=== PATIENT | male | born 1965 | race Caucasian/White ===

== ENCOUNTER 2021-09-29 18:24 | Observation (INO) ==
--- NOTE | 2021-09-29 18:44 | Emergency Department Note ---
Abdominal Pain HPI General Chief Complaint: Abdominal Pain Stated Complaint: Flank pain Time Seen by Provider: 09/29/21 18:26 Source: patient Mode of arrival: ambulatory Limitations: no limitations History of Present Illness HPI Narrative: 56-year-old male presents to the ER from minor care after a CT scan revealed a mild appendicitis. The patient states that he had onset of symptoms 3 days ago and cut his camping trip short due to right lower quadrant discomfort. He's had no nausea or vomiting. Denies fevers or chills. No previous abdominal surgeries. He is passing flatus and having normal stools. Last meal was at 11:30 AM. Past medical history significant for hypertension for which he takes 10 mg of lisinopril daily otherwise no other significant medical issues. CBC and CMP from 09/28 are within normal limits. CT scan from today shows: The appendix is slightly enlarged. Proximal appendix measures approximately 9 mm in cross-sectional diameter. There is mild periappendiceal inflammatory change. Findings are consistent with mild or early appendicitis. There is no abscess. No appendicolith. No evidence for ruptured appendicitis. Related Data Home Medications Medication Instructions Recorded Confirmed lisinopril 10 mg tablet 10 mg PO DAILY 07/23/15 09/29/21 cholecalciferol (vitamin D3) 125 125 mcg PO QDAY 03/29/21 09/29/21 mcg (5,000 unit) capsule omega 9-njk-cho-fish oil 1,000 mg 1 cap PO BID 03/29/21 09/29/21 (120 mg-180 mg) capsule (Fish Oil) Allergies Allergy/AdvReac Type Severity Reaction Status Date / Time oxycodone [From Percocet] AdvReac Mild Itching Verified 09/28/21 18:02 Review of Systems ROS ROS Narrative: Narrative: All systems ED: reviewed and negative except as stated. PFSH Narrative Patient History Narrative: Narrative: Medical/Surgical/Family History All Active Problems (Updated 09/29/21 @ 18:50 by Bárbara Lima PA-C) Acute appendicitis (Acute) Right sided abdominal pain (Acute) Cervical radiculopathy (Acute) Occipital neuralgia (Chronic) Other low back pain (Chronic) Chronic pain (Chronic) GERD (gastroesophageal reflux disease) (Chronic) Gout (Chronic) Benign essential hypertension (Chronic) Anxiety (Chronic) Sleep apnea (Chronic) Hyperlipidemia (Chronic) Vitamin D deficiency (Chronic) Lateral epicondylitis (Chronic) Atrial fibrillation (Chronic) Breast mass (Chronic) Foot pain (Chronic) Unilateral sensorineural hearing loss (Chronic) Tobacco use (Chronic) Knee pain (Chronic) Actinic keratosis (Chronic) Elevated PSA (Chronic) Bilateral elbow joint pain (Chronic) Vertigo (Chronic) Cervical spine degeneration (Chronic) Headache (Chronic) Neck pain (Chronic) Chest pain (Chronic) Medical History Actinic keratosis Anxiety Atrial fibrillation Benign essential hypertension Bilateral elbow joint pain Breast mass Cervical spine degeneration Chest pain Chronic pain Elevated PSA Foot pain GERD (gastroesophageal reflux disease) Gout Headache Hyperlipidemia Knee pain Lateral epicondylitis Neck pain Occipital neuralgia Other low back pain Sleep apnea Tobacco use Unilateral sensorineural hearing loss Vertigo Vitamin D deficiency Surgical History History of Achilles tendon repair x2 Family History Mother Cancer Chronic pain Heart disease Diabetes Hypertension Sister Hypertension Family/Other Cancer Heart disease Diabetes Social History Smoking Status: Former smoker Alcohol Intake Frequency: a few times a week Substance Use: does not use Exam Narrative Narrative: General: AOx3, NAD, nontoxic appearing. Pleasant and conversant. HEENT: PERRL, EOMI, normocephalic. Moist mucous membranes. Normal facies and normal dentition. Chest: Symmetric, no pain to palpation Respiratory: Lungs clear to auscultation bilaterally. No respiratory distress. Unlabored breathing. Heart: Regular rate and rhythm, no murmurs/clicks/rubs. Abdomen: Mild right lower quadrant discomfort, negative McBurney's rebound tenderness., Non distended. No organomegaly. Extremities: Warm and well perfused. No edema. DP 2+ bilaterally. No venous stasis. Neuro: No focal deficits. Cranial nerves II-XII grossly normal. Skin: Warm dry, no rashes or lesions, no cyanosis. Psych: Normal mood and affect Heme/Lymph: No abnormal bruising General Limitations: no limitations Course Vital Signs Vital signs: Vital Signs Temperature 97.3 F 09/29/21 18:26 Pulse Rate 64 09/29/21 18:26 Respiratory Rate 16 09/29/21 18:26 Blood Pressure 155/88 09/29/21 18:26 Pulse Oximetry (%) 97 09/29/21 18:26 Oxygen Delivery Method 09/29/21 18:26 Temperature 97.3 F 09/29/21 18:26 Pulse Rate 64 09/29/21 18:26 Respiratory Rate 16 09/29/21 18:26 Blood Pressure 155/88 09/29/21 18:26 Pulse Oximetry (%) 97 09/29/21 18:26 Oxygen Delivery Method 09/29/21 18:26 MDM MDM Narrative Medical decision making narrative: Appendicitis Dr. Jernigan has been consulted on this patient and the plan is to admit, start IV antibiotic, and he will take him to the OR tomorrow for appendectomy. Lab Data Result diagrams: 09/29/21 18:41 Labs: Lab Results 09/29/21 Range/Units 18:46 POC Hct 44.0 (41-55) POC Sodium 136 (133-145) POC Potassium 4.3 (3.3-5.1) POC Chloride 100 (96-108) POC Total CO2 26.0 (22-30) POC BUN 16 (6-20) POC Creatinine 1.1 (0.6-1.2) POC Glucose 100 (70-105) POC WB Ioniz Calcium 1.06 L (1.16-1.32) Discharge Plan Patient/Caregiver Discharge Instructions Pt seen by BLUEPRINT ENGINEER/PA only: Yes Clinical Impression: Acute appendicitis Patient Disposition: Xfer As Inpt ([facility]) Follow up with: Rob Ness ARNP [Primary Care Provider] - Prescriptions: No Action cholecalciferol (vitamin D3) 125 mcg (5,000 unit) capsule 125 mcg PO QDAY omega 5-icz-kfk-fish oil [Fish Oil] 1,000 mg (120 mg-180 mg) capsule 1 cap PO BID lisinopril 10 MG tablet 10 mg PO DAILY
[2021-09-29] MEDS ORDERED: PIPERACILLIN SODIUM/TAZOBACTAM 3.375 GM in DEXTROSE 5% IN WATER 50 ML IV ONE (18:46)
[2021-09-29 18:51] LABS: POC Calcium, Ionized 1.06 (1.16-1.32); POC Creatinine 1.1 (0.6-1.2); POC Potassium 4.3 (3.3-5.1)
[2021-09-29] MEDS ORDERED: ONDANSETRON 4 MG/2 ML VIAL IV ONE (18:56)
[2021-09-29 19:09] LABS: Basophils # (Auto) 0.05 K/mcL (0.00-0.30); Basophils % (Auto) 0.7 % (0.0-2.0); Eosinophils # (Auto) 0.29 K/mcL (0.00-0.70); Eosinophils % (Auto) 4.1 % (0.0-7.0); Hematocrit 40.7 % (40.1-51.0); Hemoglobin 14.2 g/dL (13.7-17.5); Lymphocytes # (Auto) 2.46 K/mcL (1.50-4.80); Lymphocytes % (Auto) 34.6 % (15.5-49.0); Mean Cell Volume 91.7 fL (80.0-100.0); Mean Corpuscular HGB Conc 34.9 g/dL (31.0-36.0); Mean Platelet Volume 9.3 fL (7.4-10.4); Monocytes # (Auto) 0.85 K/mcL (0.10-0.90); Neutrophils % (Auto) 48.3 % (38.0-78.0); Platelet Count 201 K/mcL (140-440); RBC 4.44 M/mcL (4.63-6.08); Red Cell Distribution Width 11.7 % (11.5-14.5); WBC 7.1 K/mcL (4.5-11.0)
[2021-09-29] MEDS: 0.9 % SODIUM CHLORIDE 1,000 ML IV SCH (20:35)
[2021-09-29 20:38] LABS: POC Pro Time 11.6 (11.9-14.5)
[2021-09-29] MEDS ORDERED: PROMETHAZINE 25 MG/ML VIAL IV PRN (20:39)
--- NOTE | 2021-09-29 20:50 | General Surg History&Physical ---
HPI History of Present Illness Patient information: Note initiated : 09/29/21 at 8:46 pm Service Date, if different from initiated Date: [] Patient: Lul Lo 56 y/o M admitted on 09/29/21 for Flank pain. Chief Complaint: [] Chief complaint: Acute appendicitis History of present illness: Mr. Lo is a 56 year old M with 3-day history of diffuse abdominal pain which settled in the right lower quadrant. Patient was seen and minor care and his CT that was performed earlier this morning showed thickening of the appendix with edema of the appendiceal wall and periappendiceal edema. There is no evidence of perforation or fecalith. Patient is admitted and will have scheduled appendectomy. Review of Systems All systems: reviewed and no additional remarkable complaints except as stated (Negative except as noted in the history of present illness) PFSH PFSH All Active Problems Acute appendicitis (Acute) Right sided abdominal pain (Acute) Cervical radiculopathy (Acute) Occipital neuralgia (Chronic) Other low back pain (Chronic) Chronic pain (Chronic) GERD (gastroesophageal reflux disease) (Chronic) Gout (Chronic) Benign essential hypertension (Chronic) Anxiety (Chronic) Sleep apnea (Chronic) Hyperlipidemia (Chronic) Vitamin D deficiency (Chronic) Lateral epicondylitis (Chronic) Atrial fibrillation (Chronic) Breast mass (Chronic) Foot pain (Chronic) Unilateral sensorineural hearing loss (Chronic) Tobacco use (Chronic) Knee pain (Chronic) Actinic keratosis (Chronic) Elevated PSA (Chronic) Bilateral elbow joint pain (Chronic) Vertigo (Chronic) Cervical spine degeneration (Chronic) Headache (Chronic) Neck pain (Chronic) Chest pain (Chronic) Medical History Actinic keratosis Anxiety Atrial fibrillation Benign essential hypertension Bilateral elbow joint pain Breast mass Cervical spine degeneration Chest pain Chronic pain Elevated PSA Foot pain GERD (gastroesophageal reflux disease) Gout Headache Hyperlipidemia Knee pain Lateral epicondylitis Neck pain Occipital neuralgia Other low back pain Sleep apnea Tobacco use Unilateral sensorineural hearing loss Vertigo Vitamin D deficiency Surgical History History of Achilles tendon repair x2 Family History Mother Cancer Chronic pain Heart disease Diabetes Hypertension Sister Hypertension Family/Other Cancer Heart disease Diabetes Social History marital status: education level: college occupational status: retired smoking status: Former smoker alcohol intake frequency: a few times a week substance use type: does not use MEDS/ALLERGIES Home Medications and Allergies Home Medications Medication Instructions Recorded Confirmed Type lisinopril 10 mg tablet 10 mg PO DAILY 07/23/15 09/29/21 History cholecalciferol (vitamin D3) 125 125 mcg PO QDAY 03/29/21 09/29/21 History mcg (5,000 unit) capsule omega 2-cdt-lce-fish oil 1,000 mg 1 cap PO BID 03/29/21 09/29/21 History (120 mg-180 mg) capsule (Fish Oil) Allergies Allergy/AdvReac Type Severity Reaction Status Date / Time oxycodone [From Percocet] AdvReac Mild Itching Verified 09/28/21 18:02 Physical Examination Vital Signs Vital signs: Temp Pulse Resp BP Pulse Ox O2 Del Method 98.0 F 59 L 14 142/83 95 09/29/21 20:01 09/29/21 20:01 09/29/21 20:01 09/29/21 20:01 09/29/21 20:01 09/29/21 20:01 General physical appearance General physical exam: well developed, well nourished, no distress and moderate pain Eyes Eye exam: PERRL and normal ocular movement ENT ENT exam: normal mucosa and no hearing loss Head Head exam IM: Present atraumatic, normal inspection and normocephalic Neck Neck exam: no masses, no bruits, trachea midline, no lymphadenopathy and no venous distension Cardiovascular Cardiovascular exam IM: Present normal rate and rhythm, RRR, +S1 and +S2; Absent JVD Respiratory Respiratory exam: normal expansion, normal respiratory effort and clear to auscultation Abdomen Abdomen: Present soft, tender (Mild tenderness in right lower quadrant) and bowel sounds (Normal bowel sounds); Absent masses or guarding Integumentary Integumentary: Present no rash, no growths and no abnormal pigmentation Neurologic Neurologic: Present normal coordination and normal sensation Musculoskeletal Musculoskeletal: Present normal gait and normal posture Psychiatric Psychiatric: Present oriented to time, oriented to person, oriented to place, speech is normal and memory intact Results Labs Result diagrams: 09/29/21 18:41 Labs: Abnormal lab results 09/29/21 09/29/21 09/29/21 Range/Units 18:41 18:46 20:35 RBC 4.44 L (4.63-6.08) M/mcL POC PT 11.6 L (11.9-14.5) POC WB Ioniz Calcium 1.06 L (1.16-1.32) All other labs normal. A/P Assessment and plan (1) Acute appendicitis: Status: Acute (2) GERD (gastroesophageal reflux disease): Status: Chronic (3) Sleep apnea: Status: Chronic Plan Patient is admitted for appendectomy Surgery to be performed tomorrow Zosyn 3.375 g IV every 6 hours Promethazine 12.5 mg IV every 4 hours as needed N.p.o. after midnight Time Spent With Patient Time: Total time spent is greater than 50% in coordination of care (as documented) at patient's floor/unit and/or counseling patient:
[2021-09-29] MEDS: PIPERACILLIN SODIUM/TAZOBACTAM 3.375 GM in DEXTROSE 5% IN WATER 50 ML IV SCH (22:05)
[2021-09-29] MEDS: ACETAMINOPHEN 1,000 MG/100 ML BAG IV SCH (22:19)
[2021-09-29] MEDS ORDERED: ACETAMINOPHEN 1,000 MG/100 ML BAG IV ONE (22:26)
[2021-09-30] MEDS: PIPERACILLIN SODIUM/TAZOBACTAM 3.375 GM in DEXTROSE 5% IN WATER 50 ML IV SCH ×5 (02:35→23:33)
[2021-09-30] MEDS ORDERED: ACETAMINOPHEN 1,000 MG/100 ML BAG IV ONE ×2 (03:06→14:51)
[2021-09-30] MEDS: ACETAMINOPHEN 1,000 MG/100 ML BAG IV SCH ×3 (03:08→14:45)
--- NOTE | 2021-09-30 05:43 | XRay Report ---
INDICATION: preop TECHNIQUE: AP portable semiupright chest x-ray COMPARISON: Previous examinations dated 07/18/2020, 07/23/2015 FINDINGS: Lungs:Lungs are negative. No focal pulmonary parenchymal infiltrate or mass Heart, vascular:No significant cardiomegaly. Pulmonary vascularity is normal. No pulmonary edema or pulmonary congestion Mediastinum, yahaira:No mediastinal widening. No hilar mass Pleura:No pleural fluid. No pleural-based mass or calcification Skeletal:Negative. IMPRESSION: Negative AP chest x-ray Interpreted and Authenticated by: Len Zamarripa 09/30/21
[2021-09-30 06:57] LABS: Basophils # (Auto) 0.03 K/mcL (0.00-0.30); Basophils % (Auto) 0.5 % (0.0-2.0); Eosinophils # (Auto) 0.29 K/mcL (0.00-0.70); Eosinophils % (Auto) 5.3 % (0.0-7.0); Hematocrit 37.7 % (40.1-51.0); Hemoglobin 13.4 g/dL (13.7-17.5); Lymphocytes # (Auto) 1.91 K/mcL (1.50-4.80); Lymphocytes % (Auto) 34.8 % (15.5-49.0); Mean Cell Volume 91.3 fL (80.0-100.0); Mean Corpuscular HGB Conc 35.5 g/dL (31.0-36.0); Mean Platelet Volume 9.6 fL (7.4-10.4); Monocytes # (Auto) 0.57 K/mcL (0.10-0.90); Monocytes % (Auto) 10.4 % (1.0-12.0); Neutrophils % (Auto) 48.8 % (38.0-78.0); Platelet Count 174 K/mcL (140-440); RBC 4.13 M/mcL (4.63-6.08); Red Cell Distribution Width 11.6 % (11.5-14.5); WBC 5.5 K/mcL (4.5-11.0)
[2021-09-30] MEDS: 0.9 % SODIUM CHLORIDE 1,000 ML IV SCH ×3 (08:13→20:32)
--- NOTE | 2021-09-30 09:14 | EKG ---
[facility] Test Date: 2021-09-29 Pat Name: Lul Lo Department: ED Room: Gender: Male Dietetic Aide: SB : 1965 Requested By: Ruperto Quevedo Order Number: [id number] Reading MD: Ramiro Aparicio Measurements Intervals [place] Rate: 63 P: 46 TX: 154 QRS: 16 QRSD: 81 T: 10 QT: 411 QTc: 421 Interpretive Statements Sinus rhythm Abnormal R-wave progression, early transition Minimal ST elevation, anterior leads Baseline wander in lead(s) V3 Electronically Signed On 09-30-2021 9:13:55 PDT by Ramiro Aparicio /store/M0/[id number]/[id number].pdf
[2021-09-30] MEDS ORDERED: SCOPOLAMINE 1 PATCH PATCH TOPICAL PRN (10:00)
[2021-09-30] MEDS ORDERED: IPRATROPIUM/ALBUTEROL 3 ML AMPUL.NEB NEB PRN ×2 (10:00→14:51)
[2021-09-30] MEDS ORDERED: GLYCOPYRROLATE 0.2 MG/ML VIAL IV ONE (14:15)
[2021-09-30] MEDS ORDERED: fentaNYL 100 MCG/2 ML VIAL IV ONE (14:15)
[2021-09-30] MEDS ORDERED: ONDANSETRON 4 MG/2 ML VIAL ONE (14:15)
[2021-09-30] MEDS ORDERED: ROCURONIUM 10 MG/ML ML IV ONE (14:15)
[2021-09-30] MEDS ORDERED: SUGAMMADEX SODIUM 200 MG/2 ML VIAL IV ONE (14:15)
[2021-09-30] MEDS ORDERED: LIDOCAINE HCL/PF 100 MG/5 ML SYRINGE IV ONE (14:15)
[2021-09-30] MEDS ORDERED: MAGNESIUM SULFATE 2 GM/50 ML BAG IV ONE (14:15)
[2021-09-30] MEDS ORDERED: PROPOFOL 200 MG/20 ML VIAL IV ONE (14:15)
[2021-09-30] MEDS ORDERED: DEXAMETHASONE 10 MG/ML VIAL ONE (14:15)
[2021-09-30] MEDS ORDERED: KETAMINE 50 MG/ML Syringe (ANEST) IV ONE (14:15)
[2021-09-30] MEDS ORDERED: HYDROmorphone 0.5 MG/0.5 ML SYRINGE IV PRN (14:51)
[2021-09-30] MEDS ORDERED: NALOXONE HCL 0.4 MG/ML VIAL IV PRN (14:51)
[2021-09-30] MEDS ORDERED: KETOROLAC 30 MG/ML VIAL IV PRN (14:51)
[2021-09-30] MEDS ORDERED: LABETALOL 5 MG/ML ML IV PRN (14:51)
[2021-09-30] MEDS ORDERED: PROMETHAZINE 25 MG/ML VIAL IV PRN (14:51)
[2021-09-30] MEDS ORDERED: ONDANSETRON 4 MG/2 ML VIAL IV PRN (14:51)
[2021-09-30] MEDS ORDERED: LACTATED RINGERS 250 ML IV PRN (14:51)
[2021-09-30] MEDS ORDERED: MEPERIDINE 25 MG/ML VIAL IV PRN (14:51)
[2021-09-30] MEDS ORDERED: LACTATED RINGERS 1,000 ML IV SCH (15:00)
--- NOTE | 2021-09-30 15:23 | Brief Operative Note ---
Brief Operative Note Date of procedure: 09/30/21 Pre-op diagnosis: acute appendicitis Post-op diagnosis: other (acute appendicitis) Procedure: laparoscopic appendectomy Grafts/Implants: No Anesthesia: GETA Findings: mild acute and chronic appendicitis with chronic adhesions Complications: none Surgeon: Matt Jernigan Estimated blood loss (cc): 5 Specimens Removed/Pathology: other (appendix) Condition: stable Disposition: PACU
[2021-09-30] MEDS: fentaNYL 100 MCG/2 ML VIAL IV PRN ×4 (15:39→15:49)
[2021-10-01] MEDS: morphine 2 MG/ML VIAL IV PRN ×2 (01:01→07:41)
[2021-10-01] MEDS: 0.9 % SODIUM CHLORIDE 1,000 ML IV SCH ×3 (04:38→23:37)
[2021-10-01] MEDS: PIPERACILLIN SODIUM/TAZOBACTAM 3.375 GM in DEXTROSE 5% IN WATER 50 ML IV SCH ×5 (05:23→23:35)
[2021-10-01 07:37] LABS: Basophils # (Auto) 0 K/mcL (0.00-0.30); Basophils % (Auto) 0 % (0.0-2.0); Eosinophils # (Auto) 0 K/mcL (0.00-0.70); Eosinophils % (Auto) 0 % (0.0-7.0); Hematocrit 38.7 % (40.1-51.0); Hemoglobin 13.5 g/dL (13.7-17.5); Lymphocytes # (Auto) 0.98 K/mcL (1.50-4.80); Mean Cell Volume 92.1 fL (80.0-100.0); Mean Corpuscular HGB Conc 34.9 g/dL (31.0-36.0); Mean Platelet Volume 9.9 fL (7.4-10.4); Monocytes # (Auto) 0.48 K/mcL (0.10-0.90); Monocytes % (Auto) 5.4 % (1.0-12.0); Neutrophils % (Auto) 83.3 % (38.0-78.0); Platelet Count 167 K/mcL (140-440); Red Cell Distribution Width 11.7 % (11.5-14.5); WBC 8.9 K/mcL (4.5-11.0)
[2021-10-01 08:08] LABS: ALT/SGPT 36 U/L (<40); AST/SGOT 37 U/L (<40); Albumin 3.6 gm/dL (3.2-5.2); Albumin/Globulin Ratio 1.5 (1.0-2.3); Alkaline Phosphatase 77 U/L (39-117); Bilirubin,Direct < 0.2 mg/dL (0-0.3); Bilirubin,Total 0.6 mg/dL (0.1-1.0); Blood Urea Nitrogen 11 mg/dL (6-20); Calcium 8.5 mg/dL (8.6-10.4); Carbon Dioxide 23 mmol/L (22-30); Chloride 102 mmol/L (96-108); Globulin 2.4 gm/dL (2.2-3.7); Glomerular Filtration Rate 84; Glucose 143 mg/dL (70-105); Lactate Dehydrogenase 160 U/L (135-225); Phosphorous 3.1 mg/dL (2.5-4.5); Triglycerides 77 mg/dL (<150); Uric Acid 4.3 mg/dL (2.5-8.0)
[2021-10-01] MEDS ORDERED: ACETAMINOPHEN 1,000 MG/100 ML BAG IV ONE (10:22)
--- NOTE | 2021-10-01 11:39 | Operative Note ---
DATE OF OPERATION: 09/30/2021 PREOPERATIVE DIAGNOSIS: Acute appendicitis. POSTOPERATIVE DIAGNOSIS: Acute appendicitis. PROCEDURE: Laparoscopic appendectomy. SURGEON: Matt Jernigan M.D. FINDINGS: Mild acute and chronic appendicitis with chronic adhesions. DESCRIPTION OF PROCEDURE: Under general anesthesia, the patient's abdomen was prepped and draped in a sterile field. Supraumbilical midline incision was made. Veress needle was inserted uneventfully. Abdomen was insufflated with 2 liters of CO2. A 12 mm port was placed. Laparoscope was placed. Under videoscopic guidance, a 5 mm port was placed in the suprapubic midline and a 12 mm port in the left lower quadrant. The patient was placed in deep Trendelenburg position and rotated to the left. The appendix was not immediately seen. It was lateral, but mostly retrocecal. The cecum was rotated medially and a chronically-inflamed appendix with moderate adhesions to the entire body of the appendix was encountered. Using electrocautery dissectors, the appendix was detached from the lateral wall. It was then grasped. The base of the appendix was dissected away from the cecum and a window was made in the mesoappendix. The appendix was transected using the Endo OSIRIS stapler. There was then serial dissection along the medial attachments to the cecum. These dissections were carried out, staying close to the appendiceal wall. Three firings of the Endo OSIRIS stapler was used to free the appendix. There was no major acute suppurative findings. Irrigation was carried out. Appendix was placed in an Endopouch and retrieved. There was no bleeding. CO2 was allowed to escape from the peritoneal cavity. Ports were removed. The fascia at the umbilicus was closed with interrupted 0 Vicryl. Skin incisions were closed with selene. Tegaderm dressings were placed. The patient was awakened, transferred to a bed, and taken to the postanesthetic care unit in satisfactory condition. LCS:brien Job ID: [id number] Doc ID: [id number] Matt Jernigan M.D.
[2021-10-01] MEDS: HYDROmorphone 2 MG TABLET PO PRN ×2 (12:17→17:52)
--- NOTE | 2021-10-01 13:55 | General Surgery Progress Note ---
SUBJECTIVE Subjective Patient information: Note initiated : 10/01/21 at 1:50 pm Service Date, if different from initiated Date: [] Patient: Lul Lo 56 y/o M admitted on 09/29/21 for Flank pain. Chief Complaint: [] Principal diagnosis: Acute appendicitis Interval history: The patient has had upper abdominal pain with some nausea. He also has neck and shoulder pain. He is taken IV analgesics with some relief. I checked him earlier in the morning is not significantly improved so I will monitor him overnight just to make sure he. He has tolerated full liquid diet without difficulty. Labs including white blood count, hemoglobin and inpatient panel normal Constitutional Vitals: Vital Signs Temp Pulse Resp BP Pulse Ox O2 Del Method O2 Flow Rate 99.3 F H 59 L 20 135/75 95 1 10/01/21 12:00 10/01/21 12:00 10/01/21 12:00 10/01/21 12:00 10/01/21 12:00 10/01/21 12:00 09/30/21 23:30 Period Temp Pulse Resp BP Sys/Castillo Pulse Ox O2 Del Method O2 Flow Rate Last 24 Hr 96.6 F-99.3 F 54-89 10-20 105-165/61-97 90-100 Nasal Cannula- Room Air 1-6 Intake and Output 09/30/21 10/01/21 10/01/21 21:59 05:59 13:59 Intake Total 4081 550 1430 Output Total 1075 1325 400 Balance 3006 -775 1030 Weight 214 lb 9.6 oz Intake & Output: Intake & Output 09/30/21 10/01/21 10/01/21 21:59 05:59 13:59 Intake Total 4081 550 1430 Output Total 1075 1325 400 Balance 3006 -775 1030 Weight 214 lb 9.6 oz Intake: IV 1381 50 1150 Sodium Chloride 0.9% 1,000 ml @ 1231 1000 100 mls/hr IV .Q10H [facility] Rx#: [id number] Zosyn 3.375 gm In Dextrose 5% 50 50 50 in Water 50 ml @ 100 mls/hr IV Q6H [facility]DELL Rx#:[id number] Oral 1400 500 280 IV - Manual Only 1300 Output: Urine Catheter Amount 600 Void Amount 450 1325 400 Estimated Blood Loss 25 Other: Meal Dinner Ice cream x1, and tuna salad Breakfast Percent of Meal Consumed 100% 100% 100% Feeding Ability Independent Independent Urine Appearance Clear Clear Clear Urine Color Dark Yellow Dark Yellow Bright Yellow Neck Neck exam: Present full ROM and normal inspection; Absent tenderness Respiratory Respiratory exam: Present normal respiratory exam and CTAB; Absent wheezes Cardiovascular Cardiovascular exam: Present normal rate and rhythm, RRR, +S1 and +S2; Absent JVD GI/Abdominal GI/Abdominal exam: Present normal bowel sounds, soft and tenderness (Right lower quadrant tenderness in the operative site); Absent distended Extremities Exam Extremities exam: Present normal inspection and neurovascular intact Neurological Exam Neurological exam: Present motor sensory deficit, normal gait, oriented X3 and reflexes normal A/P Assessment and plan (1) Acute appendicitis: Status: Acute (2) Adynamic ileus: Status: Acute Plan Discharge will be delayed and patient will be allowed to extend his stay until the morning He is advised to increase his activity and ambulate Time Spent With Patient Time: Total time spent is greater than 50% in coordination of care (as documented) at patient's floor/unit and/or counseling patient:
[2021-10-02] MEDS: PIPERACILLIN SODIUM/TAZOBACTAM 3.375 GM in DEXTROSE 5% IN WATER 50 ML IV SCH (05:12)
--- NOTE | 2021-10-02 11:12 | Discharge Summary ---
Discharge Provider Provider IMPORTANT FOLLOW-UP INFORMATION FOR PCP: Patient information: Note initiated : 10/02/21 at 11:07 am Service Date, if different from initiated Date: [] Patient: Lul Lo 56 y/o M admitted on 09/29/21 for Flank pain. Chief Complaint: [] Date of admission: 09/29/21 19:59 Discharge date: 10/02/21 Primary care physician: Rob Ness Admitting clinician: Matt Jernigan Attending physician on admission: Matt Jernigan Consults: 09/29/21 18:41 Consult to Physician [CONS] Stat Comment: Consulting Provider: Matt Jernigan Reason For Exam: Physician to Consult Attending physician on discharge: Matt Jernigan Discharging clinician: Matt Jernigan COURSE Hospital Course Hospital course: 56-year-old male who presents with right lower quadrant pain and clinical findings of appendicitis. He underwent laparoscopic appendectomy on . Yesterday he had increasing abdominal pain with some nausea. His discharge was delayed. Today he is doing fine. He has had flatus and he only has mild incisional discomfort. He is afebrile and his vitals are stable. He is stable for discharge home. Discharge diagnosis: Acute and chronic appendicitis Secondary discharge diagnosis: Hypertension Reason for admission: Acute appendicitis Procedures: Laparoscopic appendectomy Pertinent studies/significant findings: CT of abdomen and pelvis with contrast Time Spent with Patient Time attestation: Total time spent providing and/or coordinating discharge services: Time spent: Less than 30 minutes Physical Examination Vital Signs Vital signs: Temp Pulse Resp BP Pulse Ox O2 Del Method O2 Flow Rate 98.1 F 65 16 166/97 98 1 10/02/21 08:00 10/02/21 08:00 10/02/21 08:00 10/02/21 08:00 10/02/21 08:00 10/02/21 08:00 09/30/21 23:30 General physical appearance General physical exam: well developed, well nourished, no distress and moderate pain Eyes Eye exam: PERRL and normal ocular movement ENT ENT exam: normal mucosa and no hearing loss Head Head exam IM: Present atraumatic, normal inspection and normocephalic Neck Neck exam: no masses and no lymphadenopathy Cardiovascular Cardiovascular exam IM: Present normal rate and rhythm, RRR, +S1 and +S2; Absent JVD Respiratory Respiratory exam: normal expansion, normal respiratory effort and clear to auscultation Abdomen Abdomen: Present tender (Mild tenderness around port sites), bowel sounds (Normal active bowel sounds) and surgical scars Integumentary Integumentary: Present no rash, no growths and no abnormal pigmentation Neurologic Neurologic: Present normal coordination and normal sensation Musculoskeletal Musculoskeletal: Present normal gait, normal posture and other Psychiatric Psychiatric: Present oriented to time, oriented to person, oriented to place, speech is normal and memory intact Discharge Plan Patient/Caregiver Discharge Instructions Activity: increase activity as tolerated Diet: Regular Diet Prescriptions: New hydrocodone-acetaminophen 10-325 mg tablet 1 tab PO Q4H PRN (Reason: Pain) Qty: 30 0RF Continued cholecalciferol (vitamin D3) 125 mcg (5,000 unit) capsule 125 mcg PO QDAY omega 0-zmq-too-fish oil [Fish Oil] 1,000 mg (120 mg-180 mg) capsule 1 cap PO BID lisinopril 10 MG tablet 10 mg PO DAILY Follow Up Plan Follow up with: Rob Ness ARNP [Primary Care Provider] - Patient Disposition: Home, Self-Care Prognosis: Good Rehab Potential: Good I certify that the patient requires SNF services: No Overall status at discharge: patient is progressing back to baseline Discharge Orders: Discharge Order (Routine); Ordered 10/02/21 Ordered By: Matt Jernigan Pending Pending Pending: Resuscitation Status Full Code Diet Regular Diet Start MonOct 01 0800 Hydromorphone HCl (Hydromorphone 2 Mg Tablet) 2 mg PO Q4HP PRN; Protocol PRN Reason: Per Pain Protocol Last Admin: 10/01/21 17:52 Dose: 2 mg Documented By: Admin: 10/01/21 12:17 Dose: 2 mg Documented By: ROSEANN Piperacillin Sod/Tazobactam (Sod 3.375 gm/ Dextrose) 50 mls @ 100 mls/hr IV Q6H CORDELL; Protocol Last Infusion: 10/02/21 06:16 Dose: 0 mls/hr Documented By: Admin: 10/02/21 05:12 Dose: 100 mls/hr Documented By: Infusion: 10/02/21 00:17 Dose: 0 mls/hr Documented By: Admin: 10/01/21 23:35 Dose: 100 mls/hr Documented By: Infusion: 10/01/21 18:36 Dose: 0 mls/hr Documented By: Admin: 10/01/21 17:52 Dose: 200 mls/hr Documented By: Infusion: 10/01/21 13:05 Dose: 0 mls/hr Documented By: Admin: 10/01/21 12:34 Dose: 100 mls/hr Documented By: Infusion: 10/01/21 06:35 Dose: 0 mls/hr Documented By: Admin: 10/01/21 05:23 Dose: 100 mls/hr Documented By: Infusion: 10/01/21 00:05 Dose: 0 mls/hr Documented By: Admin: 09/30/21 23:33 Dose: 100 mls/hr Documented By: Infusion: 09/30/21 18:40 Dose: 0 mls/hr Documented By: Admin: 09/30/21 18:06 Dose: 100 mls/hr Documented By: DM Co-signed By: LELAND Infusion: 09/30/21 13:32 Dose: 0 mls/hr Documented By: Admin: 09/30/21 12:20 Dose: 100 mls/hr Documented By: DM Co-signed By: [email or web address] Infusion: 09/30/21 07:59 Dose: 0 mls/hr Documented By: DM Co-signed By: LELAND Admin: 09/30/21 07:29 Dose: 100 mls/hr Documented By: DM Co-signed By: LELAND Infusion: 09/30/21 03:09 Dose: 0 mls/hr Documented By: Admin: 09/30/21 02:35 Dose: 100 mls/hr Documented By: [email or web address] Admin: 09/29/21 22:05 Dose: Not Given Documented By: RADHA Sodium Chloride (Sodium Chloride 0.9%) 1,000 mls @ 100 mls/hr IV .Q10H CORDELL Last Admin: 10/01/21 23:37 Dose: Not Given Documented By: Admin: 10/01/21 15:44 Dose: Not Given Documented By: Infusion: 10/01/21 06:35 Dose: 0 mls/hr Documented By: Admin: 10/01/21 04:38 Dose: Not Given Documented By: Admin: 09/30/21 20:32 Dose: 100 mls/hr Documented By: Infusion: 09/30/21 20:32 Dose: 100 mls/hr Documented By: Admin: 09/30/21 16:42 Dose: 100 mls/hr Documented By: DM Co-signed By: SABINA Infusion: 09/30/21 16:42 Dose: 100 mls/hr Documented By: DM Co-signed By: SABINA Admin: 09/30/21 08:13 Dose: 100 mls/hr Documented By: DM Co-signed By: LELAND Infusion: 09/30/21 06:35 Dose: 0 mls/hr Documented By: Admin: 09/29/21 20:35 Dose: 100 mls/hr Documented By: RADHA Morphine Sulfate (Morphine 2 Mg/Ml Vial) 2 mg IV Q1HP PRN; Protocol PRN Reason: Per Pain Protocol Last Admin: 10/01/21 07:41 Dose: 2 mg Documented By: Admin: 10/01/21 01:01 Dose: 2 mg Documented By: JASE Promethazine HCl (Promethazine 25 Mg/Ml Vial) 12.5 mg IV Q4HP PRN; Protocol PRN Reason: Nausea/Vomiting Last Admin: 09/30/21 16:40 Dose: 12.5 mg Documented By: DM Co-signed By: SABINA Shift Summary 10/02/21 03:31 Shift Summary by Katt Ramirez Patient calm and cooperative. Frusterated overnight about patient yelling across the levy for most of the night. A/OX4. PMH : Back pain, GERD, gout, HTN, Sleep apnea, and A.fib. Lap appy - 3 sites CDI. Midline incision well approx and no signs of infection. Activity: Up ad marco - walked the halls several times during first part of shift. Plan to D/C today (10/02) VSS on RA. Initialized on 10/02/21 03:31 - END OF NOTE
== END 2021-10-02 12:15 | disposition home or self-care (01) ==
LOC: MEDSUR 18:24 → ED 18:24 → MEDSUR 19:44
PROVIDERS: ADMIT Family Medicine Adult Medicine; ATTEND Family Medicine Adult Medicine